=== PATIENT | male | born 1995 | race Two or more races ===

== ENCOUNTER 2017-06-21 17:48 | Emergency (ER) | payer MEDICAID, OTHER ==
[~2017-06-21] VITALS: Ht 177.8 cm; Wt 79.4 kg
[2017-06-21 18:13] VITALS: BP 137/82
[2017-06-21] MEDS ORDERED: IBUPROFEN 600 MG TAB PO ONE (20:15)
== END 2017-06-21 20:13 | disposition home or self-care (01) ==
LOC: ER 18:13
DX: S70.02XA Contusion of left hip, initial encounter (principal); V49.9XXA Car occupant (driver) (passenger) injured in unspecified traffic accident, initial encounter; Y93.89 Activity, other specified; Y99.8 Other external cause status; Y92.488 Other paved roadways as the place of occurrence of the external cause
CPT/HCPCS: 73502